=== PATIENT | male | born 1960 | race Caucasian/White ===

== ENCOUNTER 2019-02-17 15:09 | Inpatient (IN) ==
[2019-02-17] MEDS ORDERED: Albuterol 2.5 MG/3 ML NEBULIZER IH PRN (20:23)
[2019-02-17] MEDS ORDERED: Dextrose Gel 15 GM/37.5 ML TUBE PO PRN ×2 (20:25)
[2019-02-17] MEDS ORDERED: D5% in Water 1,000 ML IVC PRN (20:25)
[2019-02-17] MEDS ORDERED: *HR* Dextrose 50 % in Water (Syg) 50 ML SYRINGE IVP PRN (20:25)
[2019-02-17] MEDS ORDERED: Acetaminophen 325 MG TABLET PO PRN (20:28)
[2019-02-17] MEDS ORDERED: Mag Hydrox/Al Hydrox/Simeth 30 ML UDC PO PRN (20:29)
[2019-02-17] MEDS ORDERED: Ondansetron ODT 4 MG TAB.RAPDIS SL PRN (20:30)
[2019-02-17] MEDS ORDERED: Insulin LISPRO 300 UNITS/3 ML VIAL SQ SCH (21:00)
[2019-02-17] MEDS: Isosorbide MONOnitrate (24 HR) 60 MG TAB.ER.24H PO SCH (21:50)
[2019-02-17] MEDS: Lisinopril 20 MG TABLET PO SCH (21:50)
[2019-02-17] MEDS: Melatonin 3 MG TABLET PO PRN (21:51)
[2019-02-17] MEDS: *HR* Metformin 500 MG TABLET PO SCH (21:51)
[2019-02-17] MEDS: Gabapentin 100 MG CAPSULE PO SCH (21:51)
[2019-02-17] MEDS: *HR* OxyCODONE/APAP 5/325 TABLET PO PRN (21:51)
[2019-02-17] MEDS: Budesonide/Formoterol 160/4.5 1 PUFF INH IH SCH (21:52)
[2019-02-17] MEDS: Amoxicillin/Clavulanate 500 MG TABLET PO SCH (22:01)
[2019-02-18] MEDS ORDERED: *HR* Enoxaparin 30 MG/0.3 ML SYRINGE SQ SCH (06:00)
[2019-02-18 06:05] LABS: Basophils % 0.3 %; Eosinophils # 0.1 K/mcL (0.0-0.6); Eosinophils % 0.8 %; Hematocrit 34.3 % (37.5-50.1); Hemoglobin 11.3 g/dL (12.9-16.9); Immature Granulocytes % 1.2 % (0-4); Lymphocytes # 2.3 K/mcL (0.6-4.6); Lymphocytes % 20.1 %; Mean Corpuscular HGB Conc 32.9 g/dL (31.6-35.5); Mean Corpuscular Hemoglobin 32.2 pg (28.0-33.3); Mean Corpuscular Volume 97.7 fL (83.0-100.0); Mean Platelet Volume 9.5 fL (9.4-12.4); Monocytes # 1.2 K/mcL (0.0-1.3); Monocytes % 10.7 %; Platelet Count 432 K/mcL (140-400); Red Blood Count 3.51 M/mcL (4.19-5.50); Red Cell Distribution Width 14.6 % (11.5-14.5); Segmented Neutrophils % 66.9 %; White Blood Count 11.6 K/mcL (4.3-11.1)
[2019-02-18 06:09] LABS: Neutrophils # 7.8 K/mcL (1.6-8.9)
[2019-02-18 07:01] LABS: Alanine Aminotransferase 13 Units/L (7-52); Albumin 2.7 g/dL (3.5-5.7); Albumin/Globulin Ratio 0.8 (1.1-2.2); Alkaline Phosphatase 81 Units/L (34-104); Aspartate Amino Transferase 10 Units/L (13-39); BUN/Creatinine Ratio 12 (6-26); Bilirubin,Total 0.5 mg/dL (0.3-1.0); Blood Urea Nitrogen 9 mg/dL (6-20); Calcium 8.6 mg/dL (8.6-10.3); Carbon Dioxide 30 mEq/L (23-29); Chloride 99 mEq/L (98-107); Globulin 3.5 g/dL (2.4-3.5); Glucose 165 mg/dL (70-105); Osmolality,Calculated 280 (280-300); Potassium 3.9 mEq/L (3.5-5.1); Sodium 134 mEq/L (136-145); Total Protein 6.2 g/dL (6.4-8.9); eGFR For African Americans > 60 (> 60); eGFR For Non-African Americans > 60 (> 60)
[2019-02-18] MEDS ORDERED: Insulin LISPRO 300 UNITS/3 ML VIAL SQ SCH (07:30)
[2019-02-18] MEDS: Isosorbide MONOnitrate (24 HR) 60 MG TAB.ER.24H PO SCH ×2 (08:31→22:02)
[2019-02-18] MEDS: FLUoxetine 20 MG CAPSULE PO SCH (08:31)
[2019-02-18] MEDS: *HR* Metformin 500 MG TABLET PO SCH ×2 (08:31→22:02)
[2019-02-18] MEDS: Gabapentin 100 MG CAPSULE PO SCH ×3 (08:31→22:03)
[2019-02-18] MEDS: Amoxicillin/Clavulanate 500 MG TABLET PO SCH ×2 (08:32→16:39)
[2019-02-18] MEDS: Lisinopril 20 MG TABLET PO SCH ×2 (09:00→22:03)
--- NOTE | 2019-02-18 09:35 | Internal Med History&Physical ---
Date of Encounter: 02/18/19 Time of Encounter: 09:35 Assessment and Plan (1) Granulomatous lung disease Current visit: No Status: Chronic Deconditioning after lung wedge resection. He is to participate in therapies and return to normal function is hoped. (2) Diabetes mellitus, type II Current visit: No Status: Chronic We will continue his current regimen and follow with sliding scale insulin. Qualifiers: Diabetes mellitus intermediate manager insulin use: with intermediate manager use Diabetes mellitus complication status: without complication Qualified Code(s): E11.9 - Type 2 diabetes mellitus without complications; Z79.4 - [facility] (current) use of insulin (3) COPD (chronic obstructive pulmonary disease) Current visit: No Status: Chronic We will continue aerosols and follow clinically. Qualifiers: COPD type: emphysema Emphysema type: panlobular Qualified Code(s): J43.1 - Panlobular emphysema (4) Tobacco abuse Current visit: No Status: Acute He states he has quit smoking for the last 4 months and we encouraged this behavior. (5) Hypertension Current visit: No Status: Chronic Patient is without abnormality, currently. Will follow with current regimen. Qualifiers: Hypertension type: essential hypertension Qualified Code(s): I10 - Essential (primary) hypertension (6) Obstructive sleep apnea Current visit: Yes Status: Acute I informed patient that we would be monitoring his oxygen saturation and night. He will replaced on oxygen, if we document hypoxemia. We encouraged him to use CPAP now or in the future. Internal Medicine - H&P: HPI Admitted From: Hospital to Hospital Transfer Plans for Post Hospital Care: Home History of present illness: Mr. House is a 59 year old male who had a wedge resection of his lung at [facility]. This was found to be only granulomatous disease; no cancer. He had pneumonia and UTI after his surgery and this prolonged his stay at the hospital. He has the feeling that both have resolved and he is doing well but still very weak. He is admitted here for rehabilitation and strengthening. He has a left chest tube drain in place which he believes is supposed to be removed next week. Past Med Surg Social Fam HX - Past Medical History Medical history: asthma, COPD, coronary artery disease, CVA, diabetes, hyperlipidemia, hypertension, myocardial infarction, peripheral artery disease, other Additional medical history: DDD, RSD, OA, actinic keratosis, Gout, neuropathy Psychiatric history: depression - Past Surgical History Surgical History: angioplasty/stent, other Additional surgical history: Heart stent x 3 in 2015, right knee scope, pain pump implanted/removed, right knee scope, left knee surgery - Social History Smoking Status: Former smoker Smokeless Tobacco Status: No Alcohol use: none Drug use: none Occupational status: previously employed Current living situation: Home - Independent Activity Level: Independent ambulation Recent Out of Country Travel Within the Last 8 Weeks: No Exposure or Possible Exposure to Illness During Travel: No Additional social history: He is disabled because of his COPD; he is . He stopped smoking 4 months ago. - Family History Mother Living Status: Hx Family Cardiac Disorders: Yes (htn, pad, high chol) Hx Family Respiratory Disorders: No Hx Family Cancer: No Hx Family GI Disorders: No Hx Family Endocrine Disorder: No Hx Family Neuromuscular Disorders: No Hx Family Neurologic Disorders: Yes (alzheimers) Hx Family HEENT Disorders: No Hx Family Autoimmune Disorders: No Father Living Status: Hx Family Cardiac Disorders: Yes (stroke, [place]) Hx Family Respiratory Disorders: Yes (COPD) Hx Family Cancer: No Hx Family GI Disorders: No Hx Family Endocrine Disorder: Yes (DM) Hx Family Neuromuscular Disorders: No Hx Family Neurologic Disorders: No Hx Family HEENT Disorders: No Hx Family Autoimmune Disorders: No Internal Medicine - H&P: Meds Albuterol Neb [Proventil Neb] 2.5 mg IH Q8H PRN 02/01/19 [History] Albuterol Sulfate [Proair Hfa] 2 puff IH Q6H PRN 02/01/19 [History] Atenolol 50 mg PO BID 02/01/19 [History] Atorvastatin Calcium [Lipitor] 80 mg PO HS 02/01/19 [History] Budesonide/Formoterol 160/4.5 [Symbicort 160/4.5] 2 puff IH BIDR 02/01/19 [History] FLUoxetine HCl [Fluoxetine HCl] 80 mg PO DAILY 02/01/19 [History] Insulin ASPART [Novolog Flexpen] 0 unit SQ TIDWM 02/01/19 [History] Isosorbide MONOnitrate [Isosorbide Mononitrate ER] 60 mg PO BID 02/01/19 [History] Lisinopril [Zestril] 40 mg PO BID 02/01/19 [History] Metformin HCl [Metformin HCl ER] 1,000 mg PO BID 02/01/19 [History] OxyCODONE/APAP 5/325 [Percocet 5/325 MG] 1 tab PO Q4HR PRN 02/01/19 [History] Tiotropium [Spiriva] 18 mcg IH DAILY 02/01/19 [History] Amoxicillin/Clavulanate [Augmentin] 500 mg PO BIDWM 02/17/19 [History] Gabapentin [Neurontin] 100 mg PO TID 02/17/19 [History] Allergy/AdvReac Type Severity Reaction Status Date / Time No Known Allergies Allergy Verified 02/01/19 08:10 All Systems PM: He wears a full upper plate denture. He had 3 stents in his coronary arteries but no recent chest pains. He has sleep apnea and is supposed to wear a CPAP but does not use it. He is pleased that there was no cancer at the time of his lung wedge resection. Patient has no complaint of chest discomfort, dyspnea, orthopnea, breathing problems, palpitations, nausea or vomiting, constipation or diarrhea, other changes in bowel habits, heartburn, difficulty with urination, kidney problems or kidney stones, fevers chills or sweats, rash or itching, seizures, headache or lightheadedness, heat or cold intolerance, blood problems or anemia, or other new complaints, except as mentioned above. Review of systems is otherwise negative. - Constitutional Vitals: Temp Pulse Resp BP Pulse Ox 98.4 F 64 16 108/63 95 02/18/19 07:40 02/18/19 07:40 02/18/19 07:40 02/18/19 07:40 02/18/19 07:40 Exam: Examination: (Except as mentioned above): General: In no apparent distress, alert and oriented 3. Head: Atraumatic and normocephalic. Eyes: Extraocular muscles are intact, pupils equal round and reactive to light and accommodation. Sclerae anicteric. Ears: External ears are normal to inspection and hearing is grossly normal. Nose: Patent without lesion noted. Mouth: No intraoral lesions seen. Dentition: Upper plate denture is present. Neck: Supple with trachea midline. There is no thyromegaly or adenopathy and carotids are 2+ without bruit heard. Respiratory: No use of accessory muscles. Lungs are clear throughout. Normal airflow. Chest tube drain is in place and wound is dry and intact. Cardiovascular: Regular rate and rhythm without murmur appreciated. Abdomen: Bowel sounds are normal. No hepatosplenomegaly masses or tenderness. Obese and therefore difficult to palpate deeply. Extremities: No cyanosis clubbing or edema. Neurological: A and O 3. Cranial nerves II through XII are intact. No focal deficits and no abnormal movements or postures. Skin: Warm and non-diaphoretic with no lesions noted. Breasts, pelvic and rectal: Not examined. Internal Med - H&P Results - Labs CBC & Chem 7: 02/18/19 05:55 02/18/19 05:55 Labs: Short CBC 02/18/19 Range/Units 05:55 WBC 11.6 H (4.3-11.1) K/mcL Hgb 11.3 L (12.9-16.9) g/dL Hct 34.3 L (37.5-50.1) % Plt Count 432 H (140-400) K/mcL Neutrophils # 7.8 (1.6-8.9) K/mcL BMP 02/18/19 05:55 Sodium 134 L Potassium 3.9 Chloride 99 Carbon Dioxide 30 H BUN 9 Creatinine 0.75 Glucose 165 H Calcium 8.6 Liver Function 02/18/19 Range/Units 05:55 Total Bilirubin 0.5 (0.3-1.0) mg/dL AST 10 L (13-39) Units/L ALT 13 (7-52) Units/L Alkaline Phosphatase 81 (34-104) Units/L Albumin 2.7 L (3.5-5.7) g/dL
[2019-02-18] MEDS: Tiotropium 18 MCG inhalation IH SCH (12:09)
[2019-02-18] MEDS: Budesonide/Formoterol 160/4.5 1 PUFF INH IH SCH ×2 (12:09→22:05)
[2019-02-18] MEDS: *HR* OxyCODONE/APAP 5/325 TABLET PO PRN ×2 (14:04→22:04)
[2019-02-18] MEDS: Insulin LISPRO 300 UNITS/3 ML VIAL SQ SCH (18:04)
[2019-02-18] MEDS: Melatonin 3 MG TABLET PO PRN (22:04)
[2019-02-19] MEDS: *HR* Enoxaparin 40 MG/0.4 ML SYRINGE SQ SCH (05:03)
[2019-02-19] MEDS: FLUoxetine 20 MG CAPSULE PO SCH (08:43)
[2019-02-19] MEDS: *HR* Metformin 500 MG TABLET PO SCH ×2 (08:43→20:51)
[2019-02-19] MEDS: Gabapentin 100 MG CAPSULE PO SCH ×3 (08:44→20:52)
[2019-02-19] MEDS: Lisinopril 20 MG TABLET PO SCH (08:44)
[2019-02-19] MEDS: Amoxicillin/Clavulanate 500 MG TABLET PO SCH ×2 (08:44→17:03)
[2019-02-19] MEDS: Insulin LISPRO 300 UNITS/3 ML VIAL SQ SCH ×2 (08:44→17:02)
[2019-02-19] MEDS: Isosorbide MONOnitrate (24 HR) 60 MG TAB.ER.24H PO SCH ×2 (08:44→20:51)
[2019-02-19] MEDS: Tiotropium 18 MCG inhalation IH SCH (09:00)
[2019-02-19] MEDS: Budesonide/Formoterol 160/4.5 1 PUFF INH IH SCH ×2 (09:01→20:53)
--- NOTE | 2019-02-19 14:39 | Internal Med Progress Note ---
Date of Encounter: 02/19/19 Time of Encounter: 14:39 - Assessment and plan (1) Granulomatous lung disease Current Visit: No Status: Chronic Assessment and plan: Stable after wedge resection. (2) Diabetes mellitus, type II Current Visit: No Status: Chronic Assessment and plan: Stable and will continue current regimen with sliding scale. Qualifiers: Diabetes mellitus longterm insulin use: with exterminator helper termite use Diabetes mellitus complication status: without complication Qualified Code(s): E11.9 - Type 2 diabetes mellitus without complications; Z79.4 - detention (current) use of insulin (3) COPD (chronic obstructive pulmonary disease) Current Visit: No Status: Chronic Assessment and plan: Clinically stable. Qualifiers: COPD type: emphysema Emphysema type: panlobular Qualified Code(s): J43.1 - Panlobular emphysema (4) Tobacco abuse Current Visit: No Status: Acute Assessment and plan: Apparently, stable. (5) Hypertension Current Visit: No Status: Chronic Assessment and plan: Controlled. Qualifiers: Hypertension type: essential hypertension Qualified Code(s): I10 - Essential (primary) hypertension (6) Obstructive sleep apnea Current Visit: Yes Status: Acute Assessment and plan: Patient did not desaturate last night. We will follow clinically. - Subjective Interval history: Patient is feeling well except tired. He asks about his fatigue and we discussed the fact that it may take weeks before his fatigue returns to normal. He has no localizing complaints or symptoms. Patient has no complaint of chest discomfort, dyspnea, orthopnea, palpitations, nausea or vomiting, constipation or diarrhea, other changes in bowel habits, difficulty with urination, rash or itching, or other new complaints, except as mentioned above. Review of systems is otherwise negative. I discussed management of patient's care with nursing staff. - Constitutional Vitals: Temp Pulse Resp BP Pulse Ox 97.8 F 70 15 108/65 94 02/19/19 07:00 02/19/19 07:00 02/19/19 09:03 02/19/19 07:00 02/19/19 09:03 Exam: Examination: (Except as mentioned above): General: In no apparent distress. Alert and oriented 3. Nondiaphoretic. Head: Atraumatic and normocephalic. Respiratory: No use of accessory muscles. Lungs are clear throughout except for diffuse upper airway sounds. Otherwise, normal airflow. Chest tube site is dressed. Cardiovascular: Regular rate and rhythm without murmur appreciated. Abdomen: Bowel sounds are normal. No hepatosplenomegaly mass or tenderness appreciated. Obese and therefore difficult to palpate deeply. Extremities: No cyanosis clubbing or edema. Skin: Warm and non-diaphoretic with no new lesions noted. Internal Medicine: Result - Labs CBC & Chem 7: 02/18/19 05:55 02/18/19 05:55 Consult Discharge Plan - Plan Referrals: Christine Rodríguez, MANAGER CONTROL [Primary Care Provider] -
[2019-02-19] MEDS: *HR* OxyCODONE/APAP 5/325 TABLET PO PRN (20:52)
[2019-02-19] MEDS: Melatonin 3 MG TABLET PO PRN (20:52)
[2019-02-20] MEDS: *HR* Enoxaparin 40 MG/0.4 ML SYRINGE SQ SCH (05:35)
[2019-02-20] MEDS: Tiotropium 18 MCG inhalation IH SCH (07:32)
[2019-02-20] MEDS: Budesonide/Formoterol 160/4.5 1 PUFF INH IH SCH ×2 (07:33→19:59)
[2019-02-20] MEDS: Amoxicillin/Clavulanate 500 MG TABLET PO SCH ×2 (09:47→16:56)
[2019-02-20] MEDS: Insulin LISPRO 300 UNITS/3 ML VIAL SQ SCH ×2 (09:47→16:56)
[2019-02-20] MEDS: Isosorbide MONOnitrate (24 HR) 60 MG TAB.ER.24H PO SCH ×2 (10:09→21:44)
[2019-02-20] MEDS: *HR* Metformin 500 MG TABLET PO SCH ×2 (10:09→21:44)
[2019-02-20] MEDS: Gabapentin 100 MG CAPSULE PO SCH ×3 (10:09→21:45)
[2019-02-20] MEDS: *HR* OxyCODONE/APAP 5/325 TABLET PO PRN ×3 (10:09→21:45)
[2019-02-20] MEDS: FLUoxetine 20 MG CAPSULE PO SCH (10:09)
--- NOTE | 2019-02-20 10:35 | Internal Med Progress Note ---
Date of Encounter: 02/20/19 Time of Encounter: 10:32 - Assessment and plan (1) Granulomatous lung disease Current Visit: Yes Status: Chronic Assessment and plan: No acute issues. Patient's surgical incision appears healthy. Chest tube was scant drainage received no signs of air leak noted. Breath sounds to left lower base but no rub crepitus noted. Pain currently is tolerable with current pain medications. Patient dissipated therapy and progressing well. Patient to continue with follow-up tomorrow with thoracic surgery for evaluation of chest tube. (2) COPD (chronic obstructive pulmonary disease) Current Visit: Yes Status: Chronic Assessment and plan: No acute issues. Patient denies any dyspnea. Left chest tube shows scant drainage received with no signs of air leak. No crepitus or rub. We will continue with current medications. We will continue with therapy Qualifiers: COPD type: emphysema Emphysema type: panlobular Qualified Code(s): J43.1 - Panlobular emphysema (3) Diabetes mellitus, type II Current Visit: Yes Status: Chronic Assessment and plan: Patient's glucoses been fairly well-controlled with fingersticks less than 200. We will continue with sliding scale coverage and long-acting insulin coverage. Qualifiers: Diabetes mellitus adjunct faculty for medical terminology insulin use: with adjunct faculty for medical terminology use Diabetes mellitus complication status: without complication Qualified Code(s): E11.9 - Type 2 diabetes mellitus without complications; Z79.4 - ferry terminal supervisor (current) use of insulin (4) Hypertension Current Visit: Yes Status: Chronic Assessment and plan: Vital signs stable. We will continue with current medications. Qualifiers: Hypertension type: essential hypertension Qualified Code(s): I10 - Essential (primary) hypertension - Time Spent With Patient less than 15 minutes - Subjective Interval history: Patient appears relaxed currently denies any discomforts or shortness of breath. Patient does state that he feels fatigued after therapy. Patient noted to have some complaints of pain during chest tube dressing site change. Patient reportedly has follow-up appointment with thoracic surgeon tomorrow for evaluation of his chest tube. - Constitutional Vitals: Temp Pulse Resp BP Pulse Ox 97.9 F 74 18 143/69 95 02/20/19 06:52 02/20/19 06:52 02/20/19 07:36 02/20/19 06:52 02/20/19 07:36 General appearance: Present: A&O X 3, pleasant - Head Head exam: Present: atraumatic, normocephalic - Eye Eye exam: Present: PERRL, conjuntiva pink, sclera anicteric Pupils: Present: PERRL - Neck Neck exam general surgery: Present: supple, trachea midline. Absent: lymphadenopathy - Respiratory Respiratory exam: Present: decreased breath sounds, CTAB. Absent: accessory muscle use, rales, rhonchi, wheezes Additional comments: Lungs are clear to overfills with diminished breath sounds noted to left basilar redd. No rub or crepitus noted Respiratory effort appears relaxed. No productive cough noted. Patient with a portable Pleur-evac to a chest tube from the left chest flank with scant amount of serous type drainage. No waterseal provided. Chest tube insertion site appears slightly erythemic but it is dry and intact. - Cardiovascular Cardiovascular exam: Present: RRR, +S1, +S2. Absent: diastolic murmur, gallop, rubs, systolic murmur - GI/Abdominal GI/Abdominal exam: Present: normal bowel sounds, soft, no peritoneal signs. Absent: distended, tenderness - Extremities Exam Extremities exam: Present: warm, radial pulses palpable and symmetrical. Absent: calf tenderness, cyanotic, pedal edema - Neurological Exam Neurological exam: Present: CN II-XII intact, oriented X3, no focal deficits. Absent: pronater drift, facial droop, speech deficit - Skin Skin exam: Present: dry, intact Internal Medicine: Result - Labs CBC & Chem 7: 02/18/19 05:55 02/18/19 05:55 Consult Discharge Plan - Plan Referrals: Christine Rodríguez, COCOA BEAN ROASTER [Primary Care Provider] -
[2019-02-20] MEDS: Melatonin 3 MG TABLET PO PRN (21:45)
[2019-02-21] MEDS: Amoxicillin/Clavulanate 500 MG TABLET PO SCH ×2 (05:29→16:51)
[2019-02-21] MEDS: Gabapentin 100 MG CAPSULE PO SCH ×3 (05:30→21:14)
[2019-02-21] MEDS: Isosorbide MONOnitrate (24 HR) 60 MG TAB.ER.24H PO SCH ×2 (05:30→21:13)
[2019-02-21] MEDS: FLUoxetine 20 MG CAPSULE PO SCH (05:30)
[2019-02-21] MEDS: *HR* OxyCODONE/APAP 5/325 TABLET PO PRN ×3 (05:31→21:14)
[2019-02-21] MEDS: *HR* Metformin 500 MG TABLET PO SCH ×2 (09:59→21:13)
[2019-02-21] MEDS: *HR* Enoxaparin 40 MG/0.4 ML SYRINGE SQ SCH (09:59)
[2019-02-21] MEDS: Insulin LISPRO 300 UNITS/3 ML VIAL SQ SCH ×2 (09:59→16:49)
--- NOTE | 2019-02-21 10:14 | Internal Med Progress Note ---
Date of Encounter: 02/21/19 Time of Encounter: 10:12 - Assessment and plan (1) Granulomatous lung disease Current Visit: Yes Status: Chronic Assessment and plan: Follow up with pulmonology as scheduled. Chest tube removed today. (2) Hypertension Current Visit: Yes Status: Chronic Assessment and plan: Controlled with current medication. Monitor blood pressure. Qualifiers: Hypertension type: essential hypertension Qualified Code(s): I10 - Essential (primary) hypertension (3) Diabetes mellitus, type II Current Visit: Yes Status: Chronic Assessment and plan: Controlled with insulin per sliding scale. Monitor fingerstick blood sugars. Qualifiers: Diabetes mellitus terminal gauger insulin use: with terminal gauger use Diabetes mellitus complication status: without complication Qualified Code(s): E11.9 - Type 2 diabetes mellitus without complications; Z79.4 - residential (current) use of insulin (4) COPD (chronic obstructive pulmonary disease) Current Visit: Yes Status: Chronic Assessment and plan: Stable. Continue current medication. Qualifiers: COPD type: emphysema Emphysema type: panlobular Qualified Code(s): J43.1 - Panlobular emphysema - Time Spent With Patient less than 15 minutes - Subjective Interval history: Lying in bed, returned from pulmonology appointment. Chest tube was removed. Denies any shortness breath, chest pain, fever, chills, nausea vomiting or diarrhea. - Constitutional Vitals: Temp Pulse Resp BP Pulse Ox 97.7 F 70 16 101/59 98 02/21/19 09:54 02/21/19 09:54 02/21/19 09:54 02/21/19 09:54 02/21/19 09:54 General appearance: Present: A&O X 3, pleasant - Head Head exam: Present: atraumatic, normocephalic - Eye Eye exam: Present: PERRL, conjuntiva pink, sclera anicteric Pupils: Present: PERRL - Neck Neck exam general surgery: Present: supple, trachea midline. Absent: lymphadeno cesario - Respiratory Respiratory exam: Present: CTAB. Absent: accessory muscle use, rales, rhonchi, wheezes - Cardiovascular Cardiovascular exam: Present: RRR, +S1, +S2. Absent: diastolic murmur, gallop, rubs, systolic murmur - GI/Abdominal GI/Abdominal exam: Present: normal bowel sounds, soft, no peritoneal signs. Absent: distended, tenderness - Extremities Exam Extremities exam: Present: warm, radial pulses palpable and symmetrical. Ab sent: calf tenderness, cyanotic, pedal edema - Neurological Exam Neurological exam: Present: CN II-XII intact, oriented X3, no focal deficits. Absent: pronater drift, facial droop, speech deficit - Skin Skin exam: Present: dry, intact Internal Medicine: Result - Labs CBC & Chem 7: 02/18/19 05:55 02/18/19 05:55 Consult Discharge Plan - Plan Referrals: Christine Rodríguez, STAMPING MILL TENDER [Primary Care Provider] -
[2019-02-21] MEDS: Budesonide/Formoterol 160/4.5 1 PUFF INH IH SCH ×2 (10:38→20:43)
[2019-02-21] MEDS: Tiotropium 18 MCG inhalation IH SCH (10:38)
[2019-02-21] MEDS: Melatonin 3 MG TABLET PO PRN (21:14)
[2019-02-22] MEDS: *HR* Enoxaparin 40 MG/0.4 ML SYRINGE SQ SCH (05:35)
[2019-02-22] MEDS: Budesonide/Formoterol 160/4.5 1 PUFF INH IH SCH ×2 (07:39→20:20)
[2019-02-22] MEDS: Tiotropium 18 MCG inhalation IH SCH (07:39)
[2019-02-22] MEDS: Isosorbide MONOnitrate (24 HR) 60 MG TAB.ER.24H PO SCH ×2 (08:19→20:40)
[2019-02-22] MEDS: Amoxicillin/Clavulanate 500 MG TABLET PO SCH ×2 (08:19→17:16)
[2019-02-22] MEDS: *HR* Metformin 500 MG TABLET PO SCH ×2 (08:19→20:40)
[2019-02-22] MEDS: FLUoxetine 20 MG CAPSULE PO SCH (08:19)
[2019-02-22] MEDS: Gabapentin 100 MG CAPSULE PO SCH ×3 (08:20→20:41)
[2019-02-22] MEDS: Insulin LISPRO 300 UNITS/3 ML VIAL SQ SCH ×2 (08:20→17:15)
[2019-02-22] MEDS: traMADol 50 MG TABLET PO PRN ×2 (11:01→20:41)
--- NOTE | 2019-02-22 11:18 | Internal Med Progress Note ---
Date of Encounter: 02/22/19 Time of Encounter: 11:12 - Assessment and plan (1) Granulomatous lung disease Current Visit: Yes Status: Chronic Assessment and plan: follow up with pulmonology as scheduled. (2) Hypertension Current Visit: Yes Status: Chronic Assessment and plan: Controlled with current medication. Monitor blood pressure. Qualifiers: Hypertension type: essential hypertension Qualified Code(s): I10 - Essential (primary) hypertension (3) Diabetes mellitus, type II Current Visit: Yes Status: Chronic Assessment and plan: Controlled with insulin per sliding scale. Monitor fingerstick blood sugars. Qualifiers: Diabetes mellitus longwall shearer operator insulin use: with longwall shearer operator use Diabetes mellitus complication status: without complication Qualified Code(s): E11.9 - Type 2 diabetes mellitus without complications; Z79.4 - long term care social worker (current) use of insulin (4) COPD (chronic obstructive pulmonary disease) Current Visit: Yes Status: Chronic Assessment and plan: Stable. Continue current medication. Qualifiers: COPD type: emphysema Emphysema type: panlobular Qualified Code(s): J43.1 - Panlobular emphysema - Time Spent With Patient less than 15 minutes - Subjective Interval history: Lying in bed, states he has sinus pressure. just took tylenol. Denies any shortness breath, chest pain, fever, chills, nausea vomiting or diarrhea. p articipating well with therapy. - Constitutional Vitals: Temp Pulse Resp BP Pulse Ox 97.9 F 67 16 119/75 97 02/22/19 07:55 02/22/19 07:55 02/22/19 07:55 02/22/19 07:55 02/22/19 07:55 General appearance: Present: A&O X 3, pleasant - Head Head exam: Present: atraumatic, normocephalic - Eye Eye exam: Present: PERRL, conjuntiva pink, sclera anicteric Pupils: Present: PERRL - Neck Neck exam general surgery: Present: supple, trachea midline. Absent: lymphadenopathy - Respiratory Respiratory exam: Present: CTAB. Absent: accessory muscle use, rales, rhonchi, wheezes - Cardiovascular Cardiovascular exam: Present: RRR, +S1, +S2. Absent: diastolic murmur, gallop, rubs, systolic murmur - GI/Abdominal GI/Abdominal exam: Present: normal bowel sounds, soft, no peritoneal signs. Absent: distended, tenderness - Extremities Exam Extremities exam: Present: warm, radial pulses palpable and symmetrical. Absent: calf tenderness, cyanotic, pedal edema - Neurological Exam Neurological exam: Present: CN II-XII intact, oriented X3, no focal deficits. Absent: pronater drift, facial droop, speech deficit - Skin Skin exam: Present: dry, intact Internal Medicine: Result - Labs CBC & Chem 7: 02/18/19 05:55 02/18/19 05:55 Consult Discharge Plan - Plan Referrals: Christine Rodríguez, ASBESTOS PIPE SUPERVISOR [Primary Care Provider] -
[2019-02-23] MEDS: *HR* Enoxaparin 40 MG/0.4 ML SYRINGE SQ SCH (05:55)
[2019-02-23] MEDS: Budesonide/Formoterol 160/4.5 1 PUFF INH IH SCH ×2 (07:56→20:03)
[2019-02-23] MEDS: Tiotropium 18 MCG inhalation IH SCH (07:56)
[2019-02-23] MEDS: *HR* Metformin 500 MG TABLET PO SCH ×2 (07:59→21:26)
[2019-02-23] MEDS: Amoxicillin/Clavulanate 500 MG TABLET PO SCH ×2 (07:59→17:18)
[2019-02-23] MEDS: Gabapentin 100 MG CAPSULE PO SCH ×3 (07:59→21:27)
[2019-02-23] MEDS: FLUoxetine 20 MG CAPSULE PO SCH (07:59)
[2019-02-23] MEDS: Isosorbide MONOnitrate (24 HR) 60 MG TAB.ER.24H PO SCH ×2 (07:59→21:27)
[2019-02-23] MEDS: Insulin LISPRO 300 UNITS/3 ML VIAL SQ SCH ×2 (08:00→17:15)
[2019-02-23] MEDS: traMADol 50 MG TABLET PO PRN ×3 (08:07→21:28)
--- NOTE | 2019-02-23 12:11 | Internal Med Progress Note ---
Date of Encounter: 02/23/19 Time of Encounter: 12:09 - Assessment and plan (1) Granulomatous lung disease Current Visit: Yes Status: Chronic Assessment and plan: No acute issues. Patient's surgical incision appears healthy. Chest tube site dsg dry and intact. Diminished breath sounds to left lower base but no rub crepitus noted. Pain currently is tolerable with current pain medications. Patient dissipated therapy and progressing well. (2) COPD (chronic obstructive pulmonary disease) Current Visit: Yes Status: Chronic Assessment and plan: No acute issues. Patient denies any dyspnea. Diminished left basilar redd No crepitus or rub. We will continue with current medications. We will continue with therapy Qualifiers: COPD type: emphysema Emphysema type: panlobular Qualified Code(s): J43.1 - Panlobular emphysema (3) Diabetes mellitus, type II Current Visit: Yes Status: Chronic Assessment and plan: Patient's glucoses been fairly well-controlled with fingersticks less than 200. We will continue with sliding scale coverage and long-acting insulin coverage. Qualifiers: Diabetes mellitus mcc insulin use: with intermission coordinator use Diabetes mellitus complication status: without complication Qualified Code(s): E11.9 - Type 2 diabetes mellitus without complications; Z79.4 - roasterman (current) use of insulin (4) Hypertension Current Visit: Yes Status: Chronic Assessment and plan: Vital signs stable. We will continue with current medications. Qualifiers: Hypertension type: essential hypertension Qualified Code(s): I10 - Essential (primary) hypertension - Time Spent With Patient less than 15 minutes - Subjective Interval history: Patient appears relaxed currently denies any discomforts or shortness of breath. Patient does state that he feels fatigued after therapy. Patient noted to have some complaints of pain at previous chest tube site . Therapy states the patient has been progressing well - Constitutional Vitals: Temp Pulse Resp BP Pulse Ox 97.5 F L 84 18 106/70 96 02/23/19 11:35 02/23/19 11:35 02/23/19 11:35 02/23/19 11:35 02/23/19 11:35 General appearance: Present: A&O X 3, pleasant - Head Head exam: Present: atraumatic, normocephalic - Eye Eye exam: Present: PERRL, conjuntiva pink, sclera anicteric Pupils: Present: PERRL - Neck Neck exam general surgery: Present: supple, trachea midline. Absent: lymphadenopathy - Respiratory Respiratory exam: Present: CTAB. Absent: accessory muscle use, rales, rhonchi, wheezes Additional comments: Patient with left chest surgical wound appears healthy - Cardiovascular Cardiovascular exam: Present: RRR, +S1, +S2. Absent: diastolic murmur, gallop, rubs, systolic murmur - GI/Abdominal GI/Abdominal exam: Present: normal bowel sounds, soft, no peritoneal signs. Absent: distended, tenderness - Extremities Exam Extremities exam: Present: warm, radial pulses palpable and symmetrical. Absent: calf tenderness, cyanotic, pedal edema - Neurological Exam Neurological exam: Present: CN II-XII intact, oriented X3, no focal deficits. Absent: pronater drift, facial droop, speech deficit - Skin Skin exam: Present: dry, intact Internal Medicine: Result - Labs CBC & Chem 7: 02/18/19 05:55 02/18/19 05:55 Consult Discharge Plan - Plan Referrals: Christine Rodríguez, COST ESTIMATING CLERK [Primary Care Provider] -
[2019-02-23] MEDS ORDERED: Lisinopril 20 MG TABLET PO SCH (21:00)
[2019-02-23] MEDS: Melatonin 3 MG TABLET PO PRN (21:28)
[2019-02-24] MEDS: traMADol 50 MG TABLET PO PRN ×2 (05:46→21:42)
[2019-02-24] MEDS: *HR* Enoxaparin 40 MG/0.4 ML SYRINGE SQ SCH (05:46)
[2019-02-24 06:02] LABS: Hematocrit 35.8 % (37.5-50.1); Hemoglobin 11.6 g/dL (12.9-16.9); Mean Corpuscular HGB Conc 32.4 g/dL (31.6-35.5); Mean Corpuscular Hemoglobin 31.5 pg (28.0-33.3); Mean Corpuscular Volume 97.3 fL (83.0-100.0); Mean Platelet Volume 9.4 fL (9.4-12.4); Platelet Count 339 K/mcL (140-400); Red Blood Count 3.68 M/mcL (4.19-5.50); Red Cell Distribution Width 13.5 % (11.5-14.5); White Blood Count 8.7 K/mcL (4.3-11.1)
[2019-02-24 06:39] LABS: Alanine Aminotransferase 10 Units/L (7-52); Albumin 3.2 g/dL (3.5-5.7); Albumin/Globulin Ratio 0.8 (1.1-2.2); Alkaline Phosphatase 73 Units/L (34-104); Aspartate Amino Transferase 9 Units/L (13-39); BUN/Creatinine Ratio 17 (6-26); Bilirubin,Total 0.4 mg/dL (0.3-1.0); Blood Urea Nitrogen 13 mg/dL (6-20); Calcium 9.3 mg/dL (8.6-10.3); Carbon Dioxide 30 mEq/L (23-29); Chloride 95 mEq/L (98-107); Glucose 142 mg/dL (70-105); Magnesium 1.7 mg/dL (1.6-2.6); Osmolality,Calculated 279 (280-300); Potassium 4.2 mEq/L (3.5-5.1); Sodium 133 mEq/L (136-145); Total Protein 7.2 g/dL (6.4-8.9); eGFR For African Americans > 60 (> 60); eGFR For Non-African Americans > 60 (> 60)
[2019-02-24] MEDS: Tiotropium 18 MCG inhalation IH SCH (07:59)
[2019-02-24] MEDS: Budesonide/Formoterol 160/4.5 1 PUFF INH IH SCH ×2 (08:00→21:45)
[2019-02-24] MEDS: Isosorbide MONOnitrate (24 HR) 60 MG TAB.ER.24H PO SCH ×2 (08:19→21:42)
[2019-02-24] MEDS: Amoxicillin/Clavulanate 500 MG TABLET PO SCH (08:20)
[2019-02-24] MEDS: *HR* Metformin 500 MG TABLET PO SCH ×2 (08:20→21:41)
[2019-02-24] MEDS: FLUoxetine 20 MG CAPSULE PO SCH (08:20)
[2019-02-24] MEDS: Insulin LISPRO 300 UNITS/3 ML VIAL SQ SCH ×2 (08:20→16:38)
[2019-02-24] MEDS: Gabapentin 100 MG CAPSULE PO SCH ×3 (08:20→21:41)
--- NOTE | 2019-02-24 10:06 | Internal Med Progress Note ---
Date of Encounter: 02/24/19 Time of Encounter: 10:05 - Assessment and plan (1) Granulomatous lung disease Current Visit: Yes Status: Chronic Assessment and plan: follow up with pulmonology as scheduled. (2) Hypertension Current Visit: Yes Status: Chronic Assessment and plan: Controlled with current medication. Monitor blood pressure. Qualifiers: Hypertension type: essential hypertension Qualified Code(s): I10 - Essential (primary) hypertension (3) Diabetes mellitus, type II Current Visit: Yes Status: Chronic Assessment and plan: Controlled with insulin per sliding scale. Monitor fingerstick blood sugars. Qualifiers: Diabetes mellitus moth exterminator insulin use: with moth exterminator use Diabetes mellitus complication status: without complication Qualified Code(s): E11.9 - Type 2 diabetes mellitus without complications; Z79.4 - termite control servicer (current) use of insulin (4) COPD (chronic obstructive pulmonary disease) Current Visit: Yes Status: Chronic Assessment and plan: Stable. Continue current medication. Qualifiers: COPD type: emphysema Emphysema type: panlobular Qualified Code(s): J43.1 - Panlobular emphysema - Time Spent With Patient less than 15 minutes - Subjective Interval history: Participating well with therapy. To practice steps with physical therapy today. States he is starting to feel stronger. Denies fever, chills, nausea vomiting or diarrhea. Denies shortness of breath or chest pain. - Constitutional Vitals: Temp Pulse Resp BP Pulse Ox 97.6 F 69 18 129/72 94 02/24/19 09:00 02/24/19 09:00 02/24/19 09:00 02/24/19 09:00 02/24/19 09:00 General appearance: Present: A&O X 3, pleasant, no acute distress, answers questions appropriately - Head Head exam: Present: atraumatic, normocephalic - Eye Eye exam: Present: PERRL, conjuntiva pink, sclera anicteric Pupils: Present: PERRL - Neck Neck exam general surgery: Present: supple, trachea midline. Absent: lymphadenopathy - Respiratory Respiratory exam: Present: CTAB. Absent: accessory muscle use, rales, rhonchi, wheezes - Cardiovascular Cardiovascular exam: Present: RRR, +S1, +S2. Absent: diastolic murmur, gallop, rubs, systolic murmur - GI/Abdominal GI/Abdominal exam: Present: normal bowel sounds, soft, no peritoneal signs. Absent: distended, tenderness - Extremities Exam Extremities exam: Present: warm, radial pulses palpable and symmetrical. Absent: calf tenderness, cyanotic, pedal edema - Neurological Exam Neurological exam: Present: CN II-XII intact, oriented X3, no focal deficits. Absent: pronater drift, facial droop, speech deficit - Skin Skin exam: Present: dry, intact Internal Medicine: Result - Labs CBC & Chem 7: 02/24/19 05:38 02/24/19 05:38 Labs: Short CBC 02/24/19 Range/Units 05:38 WBC 8.7 (4.3-11.1) K/mcL Hgb 11.6 L (12.9-16.9) g/dL Hct 35.8 L (37.5-50.1) % Plt Count 339 (140-400) K/mcL BMP 02/24/19 05:38 Sodium 133 L Potassium 4.2 Chloride 95 L Carbon Dioxide 30 H BUN 13 Creatinine 0.78 Glucose 142 H Calcium 9.3 Liver Function 02/24/19 Range/Units 05:38 Total Bilirubin 0.4 (0.3-1.0) mg/dL AST 9 L (13-39) Units/L ALT 10 (7-52) Units/L Alkaline Phosphatase 73 (34-104) Units/L Albumin 3.2 L (3.5-5.7) g/dL Consult Discharge Plan - Plan Referrals: Christine Rodríguez, CERNER ANALYST [Primary Care Provider] -
[2019-02-24] MEDS: Melatonin 3 MG TABLET PO PRN (21:43)
[2019-02-25] MEDS: traMADol 50 MG TABLET PO PRN ×3 (06:39→20:26)
[2019-02-25] MEDS: *HR* Enoxaparin 40 MG/0.4 ML SYRINGE SQ SCH (06:40)
[2019-02-25] MEDS: *HR* Metformin 500 MG TABLET PO SCH ×2 (08:05→20:22)
[2019-02-25] MEDS: Isosorbide MONOnitrate (24 HR) 60 MG TAB.ER.24H PO SCH ×2 (08:05→20:22)
[2019-02-25] MEDS: Gabapentin 100 MG CAPSULE PO SCH ×3 (08:05→20:22)
[2019-02-25] MEDS: Insulin LISPRO 300 UNITS/3 ML VIAL SQ SCH ×2 (08:05→16:35)
[2019-02-25] MEDS: FLUoxetine 20 MG CAPSULE PO SCH (08:06)
[2019-02-25] MEDS: Tiotropium 18 MCG inhalation IH SCH (08:11)
[2019-02-25] MEDS: Budesonide/Formoterol 160/4.5 1 PUFF INH IH SCH ×2 (08:11→20:23)
--- NOTE | 2019-02-25 09:37 | Internal Med Progress Note ---
Date of Encounter: 02/25/19 Time of Encounter: 09:36 - Assessment and plan (1) Granulomatous lung disease Current Visit: Yes Status: Chronic Assessment and plan: Patient is stable after wedge resection. (2) Diabetes mellitus, type II Current Visit: Yes Status: Chronic Assessment and plan: Stable and will continue current regimen. Qualifiers: Diabetes mellitus ad terminal makeup operator insulin use: with jail use Diabetes mellitus complication status: without complication Qualified Code(s): E11.9 - Type 2 diabetes mellitus without complications; Z79.4 - exterminator termite (current) use of insulin (3) COPD (chronic obstructive pulmonary disease) Current Visit: Yes Status: Chronic Assessment and plan: Stable. Qualifiers: COPD type: emphysema Emphysema type: panlobular Qualified Code(s): J43.1 - Panlobular emphysema (4) Tobacco abuse Current Visit: No Status: Acute (5) Hypertension Current Visit: Yes Status: Chronic Assessment and plan: Controlled on current regimen. Qualifiers: Hypertension type: essential hypertension Qualified Code(s): I10 - Essential (primary) hypertension (6) Obstructive sleep apnea Current Visit: Yes Status: Acute Assessment and plan: Clinically stable but have encouraged his re-institution of CPAP upon return home. - Subjective Interval history: Patient is feeling better each day. He still has some soreness at the chest tube site but otherwise is feeling well. No longer has any chest discomfort with deep inspiration. He denies cough, no chest pain, dyspnea. He feels like his tolerance is improving. Patient has no complaint of chest discomfort, dyspnea, orthopnea, palpitations, nausea or vomiting, constipation or diarrhea, other changes in bowel habits, difficulty with urination, rash or itching, or other new complaints, except as mentioned above. Review of systems is otherwise negative. I discussed management of patient's care with nursing staff. - Constitutional Vitals: Temp Pulse Resp BP Pulse Ox 98.1 F 60 14 121/71 95 02/25/19 07:30 02/25/19 07:30 02/25/19 07:30 02/25/19 07:30 02/25/19 07:30 Exam: Examination: (Except as mentioned above): General: In no apparent distress. Alert and oriented 3. Nondiaphoretic. Head: Atraumatic and normocephalic. Respiratory: No use of accessory muscles. Lungs are clear throughout. Normal airflow. Cardiovascular: Regular rate and rhythm without murmur appreciated. Abdomen: Bowel sounds are normal. No hepatosplenomegaly mass or tenderness appreciated. Obese and therefore difficult to palpate deeply. Extremities: No cyanosis clubbing or edema. Skin: Warm and non-diaphoretic with no new lesions noted. Chest tube site seems to be healing well without significant drainage or discharge. Internal Medicine: Result - Labs CBC & Chem 7: 02/24/19 05:38 02/24/19 05:38 Consult Discharge Plan - Plan Referrals: Christine Rodríguez, PSYCHIATRIC SECRETARY [Primary Care Provider] -
[2019-02-25] MEDS: Melatonin 3 MG TABLET PO PRN (20:27)
[2019-02-26] MEDS: *HR* Enoxaparin 40 MG/0.4 ML SYRINGE SQ SCH (06:06)
[2019-02-26] MEDS: Insulin LISPRO 300 UNITS/3 ML VIAL SQ SCH (07:28)
[2019-02-26 07:37] VITALS: BP 111/71
[2019-02-26] MEDS: FLUoxetine 20 MG CAPSULE PO SCH (08:25)
[2019-02-26] MEDS: Isosorbide MONOnitrate (24 HR) 60 MG TAB.ER.24H PO SCH (08:26)
[2019-02-26] MEDS: Budesonide/Formoterol 160/4.5 1 PUFF INH IH SCH (08:26)
[2019-02-26] MEDS: Gabapentin 100 MG CAPSULE PO SCH ×2 (08:26→15:05)
[2019-02-26] MEDS: *HR* Metformin 500 MG TABLET PO SCH (08:26)
[2019-02-26] MEDS: Tiotropium 18 MCG inhalation IH SCH (08:27)
--- NOTE | 2019-02-26 13:34 | Discharge Summary ---
Date of Encounter: 02/26/19 Time of Encounter: 13:34 - Discharge Diagnosis (1) Granulomatous lung disease Priority: Primary Status: Chronic (2) Diabetes mellitus, type II Priority: Secondary Status: Chronic Qualifiers: Diabetes mellitus dedicated intermodal truck driver insulin use: with fdc use Diabetes mellitus complication status: without complication Qualified Code(s): E11.9 - Type 2 diabetes mellitus without complications; Z79.4 - long-term (current) use of insulin (3) COPD (chronic obstructive pulmonary disease) Priority: Secondary Status: Chronic Qualifiers: COPD type: emphysema Emphysema type: panlobular Qualified Code(s): J43.1 - Panlobular emphysema (4) Tobacco abuse Priority: Secondary Status: Acute (5) Hypertension Priority: Secondary Status: Chronic Qualifiers: Hypertension type: essential hypertension Qualified Code(s): I10 - Essential (primary) hypertension (6) Obstructive sleep apnea Priority: Secondary Status: Acute Hospital course: Mr. House is a 59 year old male who had a wedge resection of his lung at [facility]. This was found to be only granulomatous disease; no cancer. He had pneumonia and UTI after his surgery and this prolonged his stay at the hospital. He has the feeling that both have resolved and he is doing well but still very weak. He was admitted here for rehabilitation and strengthening. He did well with therapy and had no medical complications. He had progressive improvement in his strength, his endurance, dyspnea with exertion and participated well with therapies. Several days prior to discharge, his surgeon removed his chest tube site drain. Because of persistent hypotension, along with occasional lightheadedness, his lisinopril was discontinued. Follow-up is deferred to primary care provider. - Time Spent with Patient Total time spent providing and/or coordinating discharge services: - Discharge Medications Prescriptions: Discontinued OxyCODONE/APAP 5/325 [Percocet 5/325 MG] 1 tab PO Q4HR PRN PRN Reason: Pain No Action Albuterol Neb [Proventil Neb] 2.5 mg IH Q8H PRN PRN Reason: Shortness Of Breath Albuterol Sulfate [Proair Hfa] 2 puff IH Q6H PRN PRN Reason: Shortness Of Breath Atenolol 50 mg PO BID Atorvastatin Calcium [Lipitor] 80 mg PO HS Budesonide/Formoterol 160/4.5 [Symbicort 160/4.5] 2 puff IH BIDR FLUoxetine HCl [Fluoxetine HCl] 80 mg PO DAILY Insulin ASPART [Novolog Flexpen] 0 unit SQ TIDWM Isosorbide MONOnitrate [Isosorbide Mononitrate ER] 60 mg PO BID Lisinopril [Zestril] 40 mg PO BID Metformin HCl [Metformin HCl ER] 1,000 mg PO BID Tiotropium [Spiriva] 18 mcg IH DAILY Amoxicillin/Clavulanate [Augmentin] 500 mg PO BIDWM Gabapentin [Neurontin] 100 mg PO TID Tramadol HCl [Ultram] 50 mg PO Q6H PRN PRN Reason: Severe Pain Home Medications: Albuterol Neb [Proventil Neb] 2.5 mg IH Q8H PRN 02/01/19 [History] Albuterol Sulfate [Proair Hfa] 2 puff IH Q6H PRN 02/01/19 [History] Atenolol 50 mg PO BID 02/01/19 [History] Atorvastatin Calcium [Lipitor] 80 mg PO HS 02/01/19 [History] Budesonide/Formoterol 160/4.5 [Symbicort 160/4.5] 2 puff IH BIDR 02/01/19 [H istory] FLUoxetine HCl [Fluoxetine HCl] 80 mg PO DAILY 02/01/19 [History] Insulin ASPART [Novolog Flexpen] 0 unit SQ TIDWM 02/01/19 [History] Isosorbide MONOnitrate [Isosorbide Mononitrate ER] 60 mg PO BID 02/01/19 [History] Lisinopril [Zestril] 40 mg PO BID 02/01/19 [History] Metformin HCl [Metformin HCl ER] 1,000 mg PO BID 02/01/19 [History] Tiotropium [Spiriva] 18 mcg IH DAILY 02/01/19 [History] Amoxicillin/Clavulanate [Augmentin] 500 mg PO BIDWM 02/17/19 [History] Gabapentin [Neurontin] 100 mg PO TID 02/17/19 [History] Tramadol HCl [Ultram] 50 mg PO Q6H PRN 02/26/19 [History] Allergies/Adverse Reactions: Allergy/AdvReac Type Severity Reaction Status Date / Time No Known Allergies Allergy Verified 09/04/19 08:10 Date of admission: 02/17/19 18:45 Primary care physician: Christine Rodríguez CNP Consults: 02/17/19 19:03 Consult to Occupational Therapy [CONS] Routine Comment: Evaluate, develop and implement POC Reason for Consult: eval Does patient have active BEDREST order?: No Is patient medically & hemodynamically stable?: Yes Consult to Physical Therapy [CONS] Routine Comment: Evaluate, develop and implement POC Reason for Consult: eval Does patient have active BEDREST order?: No Is patient medically & hemodynamically stable?: Yes Consult to Recreational Therapy [CONS] Routine Comment: Evaluate, develop and implement POC Consult to Analytical Chemist [CONS] Routine Reason for SW Consult: d/c planning 02/22/19 12:49 Consult to Psychology [CONS] Routine Consulting Provider: Cydney Schmidt Reason for Consult: Possible depression; adjustment disorder Call Completed: No Discharging clinician: Ashok Bell Anticipated date of discharge: 02/26/19 - Constitutional Vitals: Temp Pulse Resp BP Pulse Ox 98.6 F 61 16 111/71 96 02/26/19 07:36 02/26/19 07:36 02/26/19 07:36 02/26/19 07:36 02/26/19 07:36 Exam: Examination: (Except as mentioned above): General: In no apparent distress. Alert and oriented 3. Nondiaphoretic. Head: Atraumatic and normocephalic. Respiratory: No use of accessory muscles. Lungs are clear throughout. Normal airflow. Cardiovascular: Regular rate and rhythm without murmur appreciated. Abdomen: Bowel sounds are normal. No hepatosplenomegaly mass or tenderness appreciated. Obese and therefore difficult to palpate deeply. Patient is examined upright in chair and this also limits exam. Extremities: No cyanosis clubbing or edema. Skin: Warm and non-diaphoretic with no new lesions noted. Left anterolateral chest tube site is intact with granulation beginning to form. No discharge noted. No signs of surrounding cellulitis, etc. - Patient Status Disposition: Home, Self-Care Condition: Good Functional capacity at discharge: independent ambulation Overall status at discharge: patient is progressing back to baseline - Discharge Instructions Follow Up With: Christine Rodríguez CNP [Primary Care Provider] - (PCP follow up request submitted via web request at [email or web address] office to call patient within 24 hours.) Paul Brito MD [Partnered Physician] - 03/20/19 10:20 am Raymundo Chandler MD [Partnered Physician] - 04/11/19 9:30 am - Diet and Activity Diet: diabetic diet, low salt diet
[2019-02-26] MEDS ORDERED: FLU Vac QV 19-20 (6Month+)/PF 0.5 ML SYRINGE IM ONE (14:45)
[2019-02-26] MEDS: traMADol 50 MG TABLET PO PRN (14:52)
== END 2019-02-26 15:20 | disposition home or self-care (01) | DRG 949 ==
LOC: INPGRE 18:45

== ENCOUNTER 2020-10-31 15:38 | Inpatient (IN) ==
[2020-10-31] MEDS ORDERED: Ipratropium/Albuterol Neb 3 ML IH PRN (21:53)
[2020-10-31] MEDS ORDERED: Dextrose Gel 15 GM/37.5 ML TUBE PO PRN ×2 (21:56)
[2020-10-31] MEDS ORDERED: *HR* Dextrose 50 % in Water (Vial) 50 ML VIAL IVP PRN (21:56)
[2020-10-31] MEDS ORDERED: D5% in Water 1,000 ML IVC PRN (21:56)
[2020-11-01] MEDS: *HR* OxyCODONE/APAP 5/325 TABLET PO PRN ×3 (04:00→20:33)
[2020-11-01 05:22] LABS: Basophils # 0.1 K/mcL (0.0-0.2); Basophils % 0.8 %; Eosinophils # 0.2 K/mcL (0.0-0.6); Eosinophils % 2.7 %; Hematocrit 41.8 % (37.5-50.1); Hemoglobin 13.7 g/dL (12.9-16.9); Immature Granulocytes % 0.3 % (0-4); Lymphocytes # 2.1 K/mcL (0.6-4.6); Lymphocytes % 27.8 %; Mean Corpuscular HGB Conc 32.8 g/dL (31.6-35.5); Mean Corpuscular Hemoglobin 31.8 pg (28.0-33.3); Mean Platelet Volume 9.8 fL (9.4-12.4); Monocytes # 1.1 K/mcL (0.0-1.3); Monocytes % 13.8 %; Neutrophils # 4.2 K/mcL (1.6-8.9); Platelet Count 427 K/mcL (140-400); Red Blood Count 4.31 M/mcL (4.19-5.50); Red Cell Distribution Width 12.9 % (11.5-14.5); Segmented Neutrophils % 54.6 %; White Blood Count 7.7 K/mcL (4.3-11.1)
[2020-11-01 05:37] LABS: BUN/Creatinine Ratio 20 (6-26); Blood Urea Nitrogen 20 mg/dL (6-20); Calcium 9.3 mg/dL (8.6-10.3); Carbon Dioxide 27 mEq/L (23-29); Chloride 100 mEq/L (98-107); Glucose 145 mg/dL (70-105); Osmolality,Calculated 285 (280-300); Potassium 3.8 mEq/L (3.5-5.1); Sodium 135 mEq/L (136-145); eGFR For African Americans > 60 (> 60); eGFR For Non-African Americans > 60 (> 60)
[2020-11-01] MEDS: *HR* Enoxaparin 40 MG/0.4 ML SYRINGE SQ SCH (06:11)
[2020-11-01] MEDS: Insulin LISPRO 300 UNITS/3 ML VIAL SUBQ SCH ×3 (09:22→17:00)
[2020-11-01] MEDS: Sulfamethoxazole/Trimeth DS 1 EACH TABLET PO SCH ×2 (09:31→20:35)
[2020-11-01] MEDS: *HR* Metformin 500 MG TABLET PO SCH ×2 (09:31→20:32)
[2020-11-01] MEDS: Isosorbide MONOnitrate (24 HR) 60 MG TAB.ER.24H PO SCH ×2 (09:31→20:33)
[2020-11-01] MEDS: atenoloL 50 MG TABLET PO SCH ×2 (09:31→20:30)
[2020-11-01] MEDS: FLUoxetine 20 MG CAPSULE PO SCH ×2 (09:31→20:33)
[2020-11-01] MEDS: Gabapentin 300 MG CAPSULE PO SCH ×2 (09:31→20:32)
[2020-11-01] MEDS: Budesonide/Formoterol 160/4.5 1 PUFF INH IH SCH ×2 (10:24→20:24)
[2020-11-01] MEDS: Tiotropium 10 INH DOSE IH SCH (20:24)
[2020-11-01] MEDS: Melatonin 3 MG TABLET PO SCH (20:31)
[2020-11-02] MEDS: *HR* Enoxaparin 40 MG/0.4 ML SYRINGE SQ SCH (04:10)
[2020-11-02] MEDS: Insulin LISPRO 300 UNITS/3 ML VIAL SUBQ SCH ×3 (08:31→16:06)
[2020-11-02] MEDS: atenoloL 50 MG TABLET PO SCH ×2 (08:56→21:13)
[2020-11-02] MEDS: Isosorbide MONOnitrate (24 HR) 60 MG TAB.ER.24H PO SCH ×2 (08:56→21:20)
[2020-11-02] MEDS: Gabapentin 300 MG CAPSULE PO SCH ×2 (08:56→21:13)
[2020-11-02] MEDS: FLUoxetine 20 MG CAPSULE PO SCH ×2 (08:56→21:15)
[2020-11-02] MEDS: *HR* Metformin 500 MG TABLET PO SCH ×2 (08:56→21:16)
[2020-11-02] MEDS: Sulfamethoxazole/Trimeth DS 1 EACH TABLET PO SCH ×2 (08:56→21:12)
[2020-11-02] MEDS: Budesonide/Formoterol 160/4.5 1 PUFF INH IH SCH ×2 (09:45→22:00)
[2020-11-02] MEDS: Tiotropium 10 INH DOSE IH SCH (09:45)
[2020-11-02] MEDS: Melatonin 3 MG TABLET PO SCH (21:13)
[2020-11-02] MEDS: *HR* OxyCODONE/APAP 5/325 TABLET PO PRN (21:21)
[2020-11-03] MEDS: *HR* Enoxaparin 40 MG/0.4 ML SYRINGE SQ SCH (06:36)
[2020-11-03] MEDS: Insulin LISPRO 300 UNITS/3 ML VIAL SUBQ SCH ×3 (07:50→16:26)
[2020-11-03] MEDS: *HR* Metformin 500 MG TABLET PO SCH ×2 (09:01→21:07)
[2020-11-03] MEDS: Isosorbide MONOnitrate (24 HR) 60 MG TAB.ER.24H PO SCH ×2 (09:01→21:04)
[2020-11-03] MEDS: Gabapentin 300 MG CAPSULE PO SCH ×2 (09:01→21:04)
[2020-11-03] MEDS: FLUoxetine 20 MG CAPSULE PO SCH ×2 (09:01→21:07)
[2020-11-03] MEDS: Sulfamethoxazole/Trimeth DS 1 EACH TABLET PO SCH ×2 (09:01→21:01)
[2020-11-03] MEDS: atenoloL 50 MG TABLET PO SCH ×2 (09:02→22:58)
[2020-11-03] MEDS: Tiotropium 10 INH DOSE IH SCH (12:16)
[2020-11-03] MEDS: Budesonide/Formoterol 160/4.5 1 PUFF INH IH SCH ×2 (12:16→21:01)
[2020-11-03] MEDS: levoFLOXacin 500 MG/100 ML 500 MG/100 ML BAG IVPB SCH (14:56)
[2020-11-03] MEDS: *HR* OxyCODONE/APAP 5/325 TABLET PO PRN ×2 (14:57→21:09)
[2020-11-03] MEDS: Nicotine 21 MG PATCH.TD24 TD SCH (16:42)
[2020-11-03] MEDS ORDERED: Ondansetron ODT 4 MG TAB.RAPDIS SL PRN (17:54)
[2020-11-03] MEDS: Melatonin 3 MG TABLET PO SCH (21:05)
[2020-11-03] MEDS: Famotidine 20 MG TABLET PO SCH (21:07)
[2020-11-04 04:26] LABS: Hematocrit 40.4 % (37.5-50.1); Hemoglobin 13.2 g/dL (12.9-16.9); Mean Corpuscular HGB Conc 32.7 g/dL (31.6-35.5); Mean Corpuscular Hemoglobin 31.7 pg (28.0-33.3); Mean Corpuscular Volume 96.9 fL (83.0-100.0); Mean Platelet Volume 9.7 fL (9.4-12.4); Platelet Count 393 K/mcL (140-400); Red Blood Count 4.17 M/mcL (4.19-5.50); Red Cell Distribution Width 12.9 % (11.5-14.5); White Blood Count 7.5 K/mcL (4.3-11.1)
[2020-11-04] MEDS: *HR* OxyCODONE/APAP 5/325 TABLET PO PRN ×4 (04:41→21:29)
[2020-11-04] MEDS: *HR* Enoxaparin 40 MG/0.4 ML SYRINGE SQ SCH (04:41)
[2020-11-04 04:42] LABS: Alanine Aminotransferase 15 Units/L (7-52); Albumin 3.5 g/dL (3.5-5.7); Albumin/Globulin Ratio 1.2 (1.1-2.2); Alkaline Phosphatase 64 Units/L (34-104); Aspartate Amino Transferase 14 Units/L (13-39); BUN/Creatinine Ratio 16 (6-26); Bilirubin,Total 0.3 mg/dL (0.3-1.0); Blood Urea Nitrogen 20 mg/dL (6-20); Calcium 8.9 mg/dL (8.6-10.3); Carbon Dioxide 25 mEq/L (23-29); Chloride 100 mEq/L (98-107); Glucose 124 mg/dL (70-105); Magnesium 1.9 mg/dL (1.6-2.6); Osmolality,Calculated 280 (280-300); Potassium 3.9 mEq/L (3.5-5.1); Sodium 133 mEq/L (136-145); Total Protein 6.5 g/dL (6.4-8.9); eGFR For African Americans > 60 (> 60); eGFR For Non-African Americans 58 (> 60)
[2020-11-04] MEDS: Budesonide/Formoterol 160/4.5 1 PUFF INH IH SCH ×2 (07:04→20:55)
[2020-11-04] MEDS: Tiotropium 10 INH DOSE IH SCH (07:04)
[2020-11-04] MEDS: levoFLOXacin 500 MG/100 ML 500 MG/100 ML BAG IVPB SCH (08:39)
[2020-11-04] MEDS: Nicotine 21 MG PATCH.TD24 TD SCH (08:45)
[2020-11-04] MEDS: atenoloL 50 MG TABLET PO SCH ×2 (08:46→21:41)
[2020-11-04] MEDS: FLUoxetine 20 MG CAPSULE PO SCH ×2 (08:46→21:28)
[2020-11-04] MEDS: Gabapentin 300 MG CAPSULE PO SCH ×2 (08:46→21:31)
[2020-11-04] MEDS: Famotidine 20 MG TABLET PO SCH ×2 (08:46→21:28)
[2020-11-04] MEDS: Isosorbide MONOnitrate (24 HR) 60 MG TAB.ER.24H PO SCH ×2 (08:47→21:30)
[2020-11-04] MEDS: *HR* Metformin 500 MG TABLET PO SCH ×2 (08:47→21:31)
[2020-11-04] MEDS: Sulfamethoxazole/Trimeth DS 1 EACH TABLET PO SCH ×2 (08:47→21:27)
[2020-11-04] MEDS: Insulin LISPRO 300 UNITS/3 ML VIAL SUBQ SCH ×3 (08:53→17:06)
[2020-11-04 08:57] LABS: C-Reactive Protein 7 mg/L (Less than 10)
[2020-11-04] MEDS: Melatonin 3 MG TABLET PO SCH (21:31)
[2020-11-05] MEDS: *HR* Enoxaparin 40 MG/0.4 ML SYRINGE SQ SCH (06:48)
[2020-11-05] MEDS: *HR* OxyCODONE/APAP 5/325 TABLET PO PRN ×3 (06:50→20:20)
[2020-11-05] MEDS: Budesonide/Formoterol 160/4.5 1 PUFF INH IH SCH ×2 (07:06→20:47)
[2020-11-05] MEDS: Tiotropium 10 INH DOSE IH SCH (07:07)
[2020-11-05] MEDS: levoFLOXacin 500 MG/100 ML 500 MG/100 ML BAG IVPB SCH (08:20)
[2020-11-05] MEDS: Nicotine 21 MG PATCH.TD24 TD SCH (08:23)
[2020-11-05] MEDS: *HR* Metformin 500 MG TABLET PO SCH ×2 (08:24→20:22)
[2020-11-05] MEDS: Famotidine 20 MG TABLET PO SCH ×2 (08:24→20:22)
[2020-11-05] MEDS: Gabapentin 300 MG CAPSULE PO SCH ×2 (08:24→20:19)
[2020-11-05] MEDS: Isosorbide MONOnitrate (24 HR) 60 MG TAB.ER.24H PO SCH ×2 (08:25→20:21)
[2020-11-05] MEDS: Sulfamethoxazole/Trimeth DS 1 EACH TABLET PO SCH ×2 (08:25→20:22)
[2020-11-05] MEDS: Insulin LISPRO 300 UNITS/3 ML VIAL SUBQ SCH ×3 (08:25→17:20)
[2020-11-05] MEDS: FLUoxetine 20 MG CAPSULE PO SCH ×2 (08:26→20:20)
[2020-11-05] MEDS: atenoloL 50 MG TABLET PO SCH ×2 (08:26→20:22)
[2020-11-05] MEDS: Thiamine (B-1) 100 MG TABLET PO SCH (12:13)
[2020-11-05] MEDS: Melatonin 3 MG TABLET PO SCH (20:21)
[2020-11-06] MEDS: *HR* Enoxaparin 40 MG/0.4 ML SYRINGE SQ SCH (06:59)
[2020-11-06 08:44] LABS: Bilirubin,Urine Negative (Negative); Blood,Urine Negative (Negative); Clarity,Urine Clear (Clear); Color,Urine Yellow (Yellow); Glucose,Urine (UA) Normal (Normal); Ketones,Urine Negative (Negative); Leukocyte Esterase,Urine Negative (Negative); Nitrite,Urine Negative (Negative); Protein,Urine Negative (Neg-Trace); Specific Gravity,Urine >= 1.030 (1.010-1.025); Urobilinogen,Urine Normal (Normal)
[2020-11-06] MEDS: FLUoxetine 20 MG CAPSULE PO SCH ×2 (09:16→20:11)
[2020-11-06] MEDS: Sulfamethoxazole/Trimeth DS 1 EACH TABLET PO SCH ×2 (09:16→20:12)
[2020-11-06] MEDS: Famotidine 20 MG TABLET PO SCH ×2 (09:16→20:11)
[2020-11-06] MEDS: Thiamine (B-1) 100 MG TABLET PO SCH (09:16)
[2020-11-06] MEDS: Insulin LISPRO 300 UNITS/3 ML VIAL SUBQ SCH ×3 (09:16→17:09)
[2020-11-06] MEDS: Gabapentin 300 MG CAPSULE PO SCH ×2 (09:17→20:12)
[2020-11-06] MEDS: *HR* Metformin 500 MG TABLET PO SCH ×2 (09:17→20:12)
[2020-11-06] MEDS: levoFLOXacin 500 MG/100 ML 500 MG/100 ML BAG IVPB SCH (09:17)
[2020-11-06] MEDS: Nicotine 21 MG PATCH.TD24 TD SCH (09:17)
[2020-11-06] MEDS: atenoloL 50 MG TABLET PO SCH ×2 (09:17→20:12)
[2020-11-06] MEDS: Isosorbide MONOnitrate (24 HR) 60 MG TAB.ER.24H PO SCH ×2 (09:17→20:12)
[2020-11-06] MEDS: *HR* OxyCODONE/APAP 5/325 TABLET PO PRN ×3 (09:18→20:12)
[2020-11-06] MEDS: Tiotropium 10 INH DOSE IH SCH (09:42)
[2020-11-06] MEDS: Budesonide/Formoterol 160/4.5 1 PUFF INH IH SCH ×2 (09:42→19:17)
[2020-11-06] MEDS: Melatonin 3 MG TABLET PO SCH (20:11)
[2020-11-07] MEDS: *HR* Enoxaparin 40 MG/0.4 ML SYRINGE SQ SCH (04:51)
[2020-11-07 05:50] LABS: Hematocrit 37.6 % (37.5-50.1); Hemoglobin 12.3 g/dL (12.9-16.9); Mean Corpuscular HGB Conc 32.7 g/dL (31.6-35.5); Mean Corpuscular Hemoglobin 31.5 pg (28.0-33.3); Mean Corpuscular Volume 96.2 fL (83.0-100.0); Mean Platelet Volume 10.1 fL (9.4-12.4); Platelet Count 360 K/mcL (140-400); Red Blood Count 3.91 M/mcL (4.19-5.50); Red Cell Distribution Width 12.9 % (11.5-14.5); White Blood Count 5.9 K/mcL (4.3-11.1)
[2020-11-07 06:09] LABS: BUN/Creatinine Ratio 15 (6-26); Blood Urea Nitrogen 16 mg/dL (6-20); Calcium 8.9 mg/dL (8.6-10.3); Carbon Dioxide 24 mEq/L (23-29); Chloride 103 mEq/L (98-107); Glucose 115 mg/dL (70-105); Osmolality,Calculated 280 (280-300); Potassium 4.1 mEq/L (3.5-5.1); Sodium 134 mEq/L (136-145); eGFR For African Americans > 60 (> 60); eGFR For Non-African Americans > 60 (> 60)
[2020-11-07] MEDS: Insulin LISPRO 300 UNITS/3 ML VIAL SUBQ SCH ×3 (08:44→17:48)
[2020-11-07] MEDS: Sulfamethoxazole/Trimeth DS 1 EACH TABLET PO SCH ×2 (08:45→21:04)
[2020-11-07] MEDS: Gabapentin 300 MG CAPSULE PO SCH ×2 (08:45→21:04)
[2020-11-07] MEDS: *HR* Metformin 500 MG TABLET PO SCH ×2 (08:45→21:03)
[2020-11-07] MEDS: FLUoxetine 20 MG CAPSULE PO SCH ×2 (08:45→21:03)
[2020-11-07] MEDS: Famotidine 20 MG TABLET PO SCH ×2 (08:45→21:03)
[2020-11-07] MEDS: atenoloL 50 MG TABLET PO SCH ×2 (08:45→21:04)
[2020-11-07] MEDS: *HR* OxyCODONE/APAP 5/325 TABLET PO PRN ×2 (08:46→14:51)
[2020-11-07] MEDS: Isosorbide MONOnitrate (24 HR) 60 MG TAB.ER.24H PO SCH ×2 (08:46→21:04)
[2020-11-07] MEDS: levoFLOXacin 500 MG/100 ML 500 MG/100 ML BAG IVPB SCH (08:50)
[2020-11-07] MEDS: Nicotine 21 MG PATCH.TD24 TD SCH (08:51)
[2020-11-07 09:58] LABS: C-Reactive Protein < 5 mg/L (Less than 10)
[2020-11-07] MEDS: Thiamine (B-1) 100 MG TABLET PO SCH (10:20)
[2020-11-07] MEDS: Budesonide/Formoterol 160/4.5 1 PUFF INH IH SCH ×2 (10:26→21:22)
[2020-11-07] MEDS: Tiotropium 10 INH DOSE IH SCH (10:26)
[2020-11-07] MEDS: Nystatin POWDER 30 GM BOTTLE TP SCH ×2 (17:20→21:04)
[2020-11-07] MEDS: Nystatin Cream 15 GM TUBE TP SCH ×2 (17:21→21:04)
[2020-11-07] MEDS: Folic Acid 1 MG TABLET PO SCH (17:21)
[2020-11-07] MEDS: Fluconazole 100 MG TABLET PO SCH (17:32)
[2020-11-07] MEDS ORDERED: Nystatin POWDER 30 GM BOTTLE TP SCH (21:00)
[2020-11-07] MEDS ORDERED: Nystatin Cream 15 GM TUBE TP SCH (21:00)
[2020-11-07] MEDS: Melatonin 3 MG TABLET PO SCH (21:03)
[2020-11-07] MEDS: hydrOXYzine pamoate 25 MG CAPSULE PO PRN (21:03)
[2020-11-08] MEDS: *HR* Enoxaparin 40 MG/0.4 ML SYRINGE SQ SCH (06:25)
[2020-11-08 07:05] VITALS: BP 102/64
[2020-11-08] MEDS: Insulin LISPRO 300 UNITS/3 ML VIAL SUBQ SCH ×2 (07:46→13:24)
[2020-11-08] MEDS ORDERED: atenoloL 50 MG TABLET PO SCH (08:13)
[2020-11-08] MEDS: Folic Acid 1 MG TABLET PO SCH (08:21)
[2020-11-08] MEDS: Sulfamethoxazole/Trimeth DS 1 EACH TABLET PO SCH (08:21)
[2020-11-08] MEDS: Fluconazole 100 MG TABLET PO SCH (08:21)
[2020-11-08] MEDS: *HR* Metformin 500 MG TABLET PO SCH (08:21)
[2020-11-08] MEDS: Famotidine 20 MG TABLET PO SCH (08:21)
[2020-11-08] MEDS: FLUoxetine 20 MG CAPSULE PO SCH (08:21)
[2020-11-08] MEDS: Thiamine (B-1) 100 MG TABLET PO SCH (08:21)
[2020-11-08] MEDS: Gabapentin 300 MG CAPSULE PO SCH (08:22)
[2020-11-08] MEDS: Nystatin Cream 15 GM TUBE TP SCH (08:22)
[2020-11-08] MEDS: Isosorbide MONOnitrate (24 HR) 60 MG TAB.ER.24H PO SCH (08:22)
[2020-11-08] MEDS: levoFLOXacin 500 MG/100 ML 500 MG/100 ML BAG IVPB SCH (08:22)
[2020-11-08] MEDS: Nicotine 21 MG PATCH.TD24 TD SCH (08:22)
[2020-11-08] MEDS: Nystatin POWDER 30 GM BOTTLE TP SCH (08:22)
[2020-11-08] MEDS: atenoloL 50 MG TABLET PO SCH (08:23)
[2020-11-08] MEDS ORDERED: Fluconazole 100 MG TABLET PO SCH (09:00)
[2020-11-08] MEDS: *HR* OxyCODONE/APAP 5/325 TABLET PO PRN ×2 (09:38→14:57)
[2020-11-08] MEDS: Tiotropium 10 INH DOSE IH SCH (13:28)
[2020-11-08] MEDS: Budesonide/Formoterol 160/4.5 1 PUFF INH IH SCH (13:30)
[2020-11-08] MEDS: hydrOXYzine pamoate 25 MG CAPSULE PO PRN (13:36)
== END 2020-11-08 17:20 | DRG 949 ==
LOC: INPGRE 21:32
PROVIDERS: ADMIT Family Medicine; ATTEND Family Medicine